=== PATIENT | male | born 1945 | race Caucasian/White ===

== ENCOUNTER 2016-11-02 08:41 | Emergency (ER) | payer OTHER ==
[~2016-11-02] VITALS: Ht 167.6 cm; Wt 77.1 kg
[~2016-11-02 08:41] MED LIST: ASPIRIN CHILDRE81 MG PO; ATORVASTATIN CA40 MG PO; CLONAZEPAM0.5 MG PO; CYCLOBENZAPRINE10 M3 PO; ENDOCET 325 MG-1 TA1 PO; ESCITALOPRAM20 MG PO; FIBER CHOICE1 CTB PO; FINASTERIDE5 MG PO; FISH OIL CONC1000 MG PO; FLEXERIL 10MG (10 MG PO; FLUZONE HI180 MCG/02 SC; MECLIZINE HCL25 M1 PO; MEDROL DOSEPAK1 PAC PO; MELOXICAM15 MG PO; METOPROLOL SUCC25 MG PO; PERCOCET 325 MG1 TA2 PO; SERTRALINE HYD100 MG PO; SERTRALINE HYDR50 MG PO; TOPCARE ASPIRI325 MG PO; TRAMADOL50 MG PO; VALIUM5 M1 PO
--- NOTE | 2016-11-02 09:40 | ED GENERAL ADULT ---
History of Present Illness General Chief Complaint: Trunk Injury Stated Complaint: L SIDE RIB PAIN S/P FALL Source: patient Exam Limitations: no limitations Vital Signs & Intake/Output Vital Signs & Intake/Output Vital Signs Date Time Temp Pulse Resp B/P Pulse O2 O2 Flow FiO2 Ox Delivery Rate 11/02 1113 96.0 59 15 142/72 95 Room Air Room Air 11/02 0856 98.1 67 18 171/112 99 Room Air Allergies Uncoded Allergies: STEROIDS (Severe, "BLOATED" 11/02/16) Reconcile Medications Aspirin (Aspirin EC) 325 MG TABLET.DR 1 TAB PO DAILY HEART HEALTH (Reported) Atorvastatin Calcium (Lipitor) 40 MG TABLET 1 TAB PO DAILY CHOLESTEROL ( Reported) Clonazepam 0.5 MG TABLET 1 TAB PO BID ANXIETY (Reported) Cyclobenzaprine (Flexeril 10MG (ER)) 10 MG TAB 1 TAB PO TID PRN STRAIN Escitalopram Oxalate 20 MG TABLET 1 TAB PO DAILY MENTAL HEALTH (Reported) Fiber (Fiber Choice) 1 CTB CTB 1 TAB PO DAILY SUPPLEMENT (Reported) Finasteride 5 MG TABLET 1 TAB PO DAILY PROSTATE (Reported) Fish Oil (Fish Oil Concentrate) 1,000 MG SGL 1 CAP PO BID SUPPLEMENT ( Reported) Meloxicam 15 MG TABLET 1 TAB PO DAILY PAIN (Reported) Metoprolol Succinate 25 MG TAB.ER.24H 1 TAB PO DAILY HEART (Reported) Oxycodone HCl/Acetaminophen (Percocet 5-325 MG Tablet) 5 MG-325 MG TABLET 1 TAB PO BID PAIN OXYCODONE HCL/ACETAMINOPHEN (Percocet 5-325 MG Tablet) 325 MG/5 MG TAB 1-2 TAB PO Q4-6 PRN PRN PAIN SERTRALINE HCL (Sertraline Hydrochloride) 100 MG TABLET 1 TAB PO DAILY MENTAL HEALTH (Reported) TRAMADOL HCL (Tramadol) 50 MG TABLET 1 TAB PO TID PAIN Triage Note: 71 Y/O MALE C/O L POSTERIOR RIB, L FLANK PAIN S/P FALL YESTERDAY. STATES HE FELL INTO DRESSER AND THEN ONTO GROUND; FALL WAS DUE TO PT TRIPPING OVER A CABINET. PT STATES HE WAS EVAL'D AT [facility] AND HAD XRAYS WHICH WERE NEGATIVE PER PT - "THEY SAID IT WAS A CONTUSION". PT STATES PAIN PERSISTS TODAY, WORSE WITH MOVEMENT OR "A DEEP BREATH". PT STATES HE HAS BEEN USING [facility] AND A BACK BRACE WITH NO RELIEF; TOOK TRAMADOL 1 HOUR AGO. Triage Nurses Notes Reviewed? yes Onset: Abrupt Duration: minute(s): Timing: no prior history HPI: 11/02/16 9:30 AM 71-year-old man presents to the emergency department complaining of severe left sided rib pain. The patient states that he fell yesterday against a dresser and was seen in urgent care center and had x-rays that revealed no fracture. He was trying to control his pain with nonsteroidal analgesics however he continues to have severe pain and so he came to the emergency department. He denies any significant shortness of breath or hemoptysis. He has no abdominal pain. He does have a past medical history of atrial fibrillation; is not on Coumadin. The onset of the symptoms were abrupt, the duration has been for 48 hours, the severity is significant; as his symptoms required him to come to the emergency department for care. On physical exam he does have left lower rib tenderness. His left upper quadrant is completely nontender there is no ecchymosis to the abdomen or flanks. He also has no left shoulder pain. Past History Travel History Traveled to [place] past 21 day No Medical History Any Pertinent Medical History? see below for history Neurological: NONE EENT: NONE Cardiovascular: hypertension, hyperlipidemia, AFIB (325MG ASA) Respiratory: NONE Gastrointestinal: DOUBEL INGUINAL HERNIA Hepatic: NONE Renal: NONE Musculoskeletal: LEFT KNEE PAIN Psychiatric: NONE Endocrine: NONE Blood Disorders: NONE Cancer(s): prostate cancer UNIT RECEPTIONIST/Reproductive: NONE Surgical History Surgical History: non-contributory Psychosocial History Who do you live with Spouse Services at Home None What is your primary language Irish Tobacco Use: Quit >30 days ago Family History Hx Contributory? No Review of Systems Review of Systems Constitutional: Denies: fever. EENTM: Reports: no symptoms. Respiratory: Denies: short of breath. Cardiovascular: Reports: see HPI. GI: Denies: abdominal pain. Genitourinary: Reports: no symptoms. Musculoskeletal: Reports: see HPI. Skin: Denies: rash. Neurological/Psychological: Reports: no symptoms. Hematologic/Endocrine: Denies: bruising, bleeding. Immunologic/Allergic: Reports: no symptoms. Physical Exam Physical Exam General Appearance: alert, awake, anxious, mild distress Head: atraumatic, normal appearance Eyes: Bilateral: normal appearance, PERRL, EOMI. Ears, Nose, Throat: normal pharynx, normal ENT inspection Neck: normal inspection, supple Respiratory: no respiratory distress Cardiovascular: regular rate/rhythm Peripheral Pulses: 4+ radial (R), 4+ radial (L) Gastrointestinal: non-tender Back: normal range of motion Extremities: normal range of motion Neurologic/Psych: no motor/sensory deficits, awake, alert, oriented x 3, normal gait Skin: intact, normal color, warm/dry Core Measures ACS in differential dx? No CVA/TIA Diagnosis: No Severe Sepsis Present: No Septic Shock Present: No Progress Differential Diagnoses I considered the following diagnoses in my evaluation of the patient: [Rib fracture, pneumothorax, pleural effusion, pulmonary contusion, hemothorax] Plan of Care: Percocet as needed. Follow-up with his doctor this week. Initial ED EKG: none Departure Departure Disposition: HOME OR SELF CARE Condition: Stable Clinical Impression Primary Impression: Rib fracture Referrals: SONYA ZAMBRANO MD (PCP/Family) Departure Forms: Customer Survey General Discharge Information Prescriptions: Current Visit Scripts Oxycodone HCl/Acetaminophen (Percocet 5-325 MG Tablet) 1 TAB PO BID #[address] PATIENT: RHONDA MILLER PRESENT AGE: 71 PATIENT ACCOUNT NO: [id number] : 43 LOCATION: [facility] ORDERING PHYSICIAN: ADITI GODFREY DO SERVICE DATE: 11/02/16 EXAM TYPE: CAT - CT CHEST WO IV CONTRAST EXAMINATION: CT CHEST WITHOUT CONTRAST CLINICAL INFORMATION: 71-year-old male with pain after fall. Evaluate for rib fracture. COMPARISON: CXR from 10/20/2013. TECHNIQUE: Multidetector volumetric CT imaging of the chest was done. Axial MIP volume rendering provided. Sagittal and coronal reformatted images were obtained. DLP: 311 mGy-cm FINDINGS: LUNGS AND PLEURA: Trachea and central airways are widely patent and normal in caliber. Scattered linear opacities from mild atelectasis in both lungs, including anterior segment of right upper lobe, medial segment of middle lobe, inferior lingula and both lower lobes. No focal pulmonary consolidation, edema, pneumothorax or pleural effusion. MEDIASTINUM: The heart size is normal. Pulmonary arteries and thoracic aorta are normal in caliber. Mild atherosclerotic calcification of the thoracic aorta and left anterior descending coronary artery. No pericardial effusion. The esophagus is unremarkable. The visualized thyroid gland is atrophied. LYMPHATICS: No pathologic sized axillary, hilar or mediastinal lymph nodes. UPPER ABDOMEN: Adrenal glands are normal. 2.9 cm peripelvic cyst of the mid right kidney and 2 cm cortical cyst of the visualized lower pole of the right kidney. OSSEOUS STRUCTURES: There are old, healed fractures of the left posteromedial 9th, 10th and 11th ribs. There is an acute, minimally displaced fracture of the left lateral 10th rib. The thoracic vertebra have normal height and alignment. No acute findings in the degenerated lower cervical or thoracic spine. There is degenerative subchondral cystic change of the distal right clavicle. IMPRESSION: 1. Minimally displaced fracture of the left lateral 10th rib. 2. No evidence of pulmonary contusion, pneumothorax or pleural effusion. DICTATED BY: JUNE ABERNATHY MD DATE/TIME DICTATED:11/02/161028 BOAT OUTFITTER:SAE DATE/TIME TRANSCRIBED:11/02/161028 CONFIDENTIAL, DO NOT COPY WITHOUT APPROPRIATE AUTHORIZATION. <Electronically signed in Other Vendor System> SIGNED BY: JUNE ABERNATHY MD 11/02/16 1041 The patient was treated with by mouth Percocet. He will follow-up with his doctor this week. Critical Care Note Critical Care Note Critical Care Time: non-applicable
--- NOTE | 2016-11-02 10:41 | CT SCAN REPORT ---
EXAMINATION: CT CHEST WITHOUT CONTRAST CLINICAL INFORMATION: 71-year-old male with pain after fall. Evaluate for rib fracture. COMPARISON: CXR from 10/20/2013. TECHNIQUE: Multidetector volumetric CT imaging of the chest was done. Axial MIP volume rendering provided. Sagittal and coronal reformatted images were obtained. DLP: 311 mGy-cm FINDINGS: LUNGS AND PLEURA: Trachea and central airways are widely patent and normal in caliber. Scattered linear opacities from mild atelectasis in both lungs, including anterior segment of right upper lobe, medial segment of middle lobe, inferior lingula and both lower lobes. No focal pulmonary consolidation, edema, pneumothorax or pleural effusion. MEDIASTINUM: The heart size is normal. Pulmonary arteries and thoracic aorta are normal in caliber. Mild atherosclerotic calcification of the thoracic aorta and left anterior descending coronary artery. No pericardial effusion. The esophagus is unremarkable. The visualized thyroid gland is atrophied. LYMPHATICS: No pathologic sized axillary, hilar or mediastinal lymph nodes. UPPER ABDOMEN: Adrenal glands are normal. 2.9 cm peripelvic cyst of the mid right kidney and 2 cm cortical cyst of the visualized lower pole of the right kidney. OSSEOUS STRUCTURES: There are old, healed fractures of the left posteromedial 9th, 10th and 11th ribs. There is an acute, minimally displaced fracture of the left lateral 10th rib. The thoracic vertebra have normal height and alignment. No acute findings in the degenerated lower cervical or thoracic spine. There is degenerative subchondral cystic change of the distal right clavicle. IMPRESSION: 1. Minimally displaced fracture of the left lateral 10th rib. 2. No evidence of pulmonary contusion, pneumothorax or pleural effusion.
[2016-11-02] MEDS ORDERED: PERCOCET 5-3251 EACH PO (10:57)
[2016-11-02 11:13] VITALS: BP 142/72
== END 2016-11-02 11:14 ==
LOC: ERH 08:41
DX: S22.32XA Fracture of one rib, left side, initial encounter for closed fracture (principal); W18.09XA Striking against other object with subsequent fall, initial encounter; Y93.9 Activity, unspecified; Y92.9 Unspecified place or not applicable

== ENCOUNTER 2017-11-23 10:16 | Emergency (ER) | payer OTHER ==
[~2017-11-23] VITALS: Ht 167.6 cm; Wt 77.1 kg
[~2017-11-23 10:16] MED LIST changes: +PERCOCET 5-3251 EACH PO; +TOPICAINE 5113 GM TOP
--- NOTE | 2017-11-23 11:29 | ED AMS/SEIZURE/WEAK/DIZZY ---
See Addendum History of Present Illness General Chief Complaint: General Adult Stated Complaint: DIZZY, WEAKNESS, X 1 DAY Source: patient, old records Exam Limitations: no limitations Vital Signs & Intake/Output Vital Signs & Intake/Output Vital Signs Date Time Temp Pulse Resp B/P B/P Pulse O2 O2 Flow FiO2 Mean Ox Delivery Rate 11/23 1212 97.8 73 20 131/76 98 Room Air 11/23 1029 96.1 80 18 94/61 96 Room Air Allergies Coded Allergies: No Known Drug Allergies (Intermediate, NONE 11/23/17) Uncoded Allergies: STEROIDS (Severe, "BLOATED" 11/02/16) Reconcile Medications Lidocaine (Topicaine 5) 5 % GEL..GRAM. 1 APPLIC TOP Q6H PRN PAIN Oxycodone HCl/Acetaminophen (Percocet 5-325 MG Tablet) 5 MG-325 MG TABLET 1 TAB PO BID PAIN Triage Note: C/O DIZZINESS AND WEAKNESS SINCE YESTERDAY, STATES HAS HAD SXS X 1 YEAR, BUT WORSE YESTERDAY AFTER EATING PIZZA FOR LUNCH. HAD LEFT SIDED CHEST PAIN AFTER, NONE NOW. DENIES SOB. Triage Nurses Notes Reviewed? yes HPI: Patient presents for evaluation of vertigo over the past few months for which he was prescribed meclizine. Patient states yesterday he was feeling "very sick" with no energy and no strength along with generalized weakness. He checked his blood pressure today but it was "okay". He states he will sometimes feel better after eating. He awoke today however with nausea but no vomiting. He denies any associated fever or cold symptoms or dyspnea. He admits to having a brief episode of left chest pain, sharp in nature, that has not recurred. He states he doesn't sleep well at night due to his 's condition. He admits that he has a history of depression and suspects this may be "a lot of the problem". Past History Travel History Traveled to [place] past 21 day No Medical History Any Pertinent Medical History? see below for history Neurological: NONE EENT: NONE Cardiovascular: hypertension, hyperlipidemia, AFIB (325MG ASA) Respiratory: NONE Gastrointestinal: DOUBEL INGUINAL HERNIA Hepatic: NONE Renal: NONE Musculoskeletal: LEFT KNEE PAIN Psychiatric: NONE Endocrine: NONE Blood Disorders: NONE Cancer(s): prostate cancer DOUBLE BACKER/Reproductive: NONE Surgical History Surgical History: non-contributory Psychosocial History Who do you live with Spouse Services at Home None What is your primary language Mozambican Tobacco Use: Quit >30 days ago ETOH Use: denies use Family History Hx Contributory? No Review of Systems Review of Systems Constitutional: Reports: malaise, weakness. EENTM: Reports: no symptoms. Respiratory: Reports: no symptoms. Cardiovascular: Reports: no symptoms. GI: Reports: no symptoms. Genitourinary: Reports: no symptoms. Musculoskeletal: Reports: no symptoms. Skin: Reports: no symptoms. Neurological/Psychological: Reports: no symptoms. Hematologic/Endocrine: Reports: no symptoms. Immunologic/Allergic: Reports: no symptoms. All Other Systems: Reviewed and Negative Physical Exam Physical Exam General Appearance: SEE BELOW Comments: Gen.: Well-nourished, well-developed, no acute respiratory distress. Head: Normocephalic, atraumatic. Eyes: Normal inspection bilaterally Ears: Normal inspection bilaterally Nose: Normal inspection Throat/mouth : Moist mucosa Neck: Supple, full range of motion, no goiter Heart: Regular rate and rhythm, no murmurs rubs or gallops Lungs: Clear to auscultation bilaterally with normal air entry Chest: Nontender Back: Normal range of motion Abdomen: Soft, nontender, nondistended, normal bowel sounds Extremities: Normal range of motion grossly, equal radial pulses, no cyanosis clubbing or edema Neurologic: Cranial nerves grossly intact, speech is clear Skin: warm and dry Psychiatric: Calm, cooperative, no apparent delusions or hallucinations Core Measures ACS in differential dx? No CVA/TIA Diagnosis No Sepsis Present: No Sepsis Focused Exam Completed? No Progress Differential Diagnosis: arrythmia, anemia, CVA/stroke, dehydration, electrolyte imbalance, hypoglycemia, hypoxia, UTI/pyelo Plan of Care: Orders Procedure Date/time Status MISTAKE 11/23 1131 Active URINALYSIS 11/23 1131 Complete THYROID STIMULATING HORMONE 11/23 1131 Complete TROPONIN LEVEL 11/23 1131 Complete COMPREHENSIVE METABOLIC PANEL 11/23 1131 Complete CBC WITHOUT DIFFERENTIAL 11/23 1131 Complete EKG 11/23 1033 Active Laboratory Tests 11/23/17 1208: CBC w Diff NO MAN DIFF REQ, RBC 4.00 L, MCV 92.7, MCH 30.6, MCHC 33.0, RDW 14.3 , MPV 6.4 L, Gran % 76.1 H, Lymphocytes % 13.3 L, Monocytes % 9.0, Eosinophils % 1.2, Basophils % 0.4, Absolute Granulocytes 6.4, Absolute Lymphocytes 1.1 L, Absolute Monocytes 0.8 H, Absolute Eosinophils 0.1, Absolute Basophils 0 11/23/17 1202: Anion Gap 9, Estimated GFR > 60, BUN/Creatinine Ratio 20.9, Glucose 99, Calcium 9.0, Total Bilirubin 0.8, AST 20, ALT 28, Alkaline Phosphatase 70, Troponin I < 0.01, Total Protein 6.4, Albumin 3.8, Globulin 2.6, Albumin/Globulin Ratio 1.5, TSH 1.370, Urine Color YEL, Urine Clarity CLEAR, Urine pH 7.5, Ur Specific [place] 1.010, Urine Protein NEG, Urine Ketones NEG, Urine Nitrite NEG, Urine Bilirubin NEG, Urine Urobilinogen 0.2, Ur Leukocyte Esterase NEG, Ur Microscopic EXAM NOT REQUIRED, Urine Hemoglobin NEG, Urine Glucose NEG Diagnostic Imaging: Discussed w/RAD: Radiology Read. CXR Impression: PATIENT: MARINO MILLER PRESENT AGE: 72 PATIENT ACCOUNT NO: [id number] : 43 LOCATION: [facility] ORDERING PHYSICIAN: Marito Vines MD SERVICE DATE: 11/23/17 EXAM TYPE: RAD - XRY-CHEST XRAY, TWO VIEWS EXAMINATION: XR CHEST CLINICAL INFORMATION: Generalized weakness COMPARISON: Multiple priors, most recently 11/02/2016 TECHNIQUE: 2 views of the chest were obtained. FINDINGS: The lungs are well expanded. There is no focal consolidation, edema, or effusion. No pneumothorax. The cardiomediastinal silhouette is within normal limits. No acute osseous abnormality. Mild degenerative changes of the spine. IMPRESSION: Clear lungs. DICTATED BY: Sahara MOSQUEDA,Joo DATE/TIME DICTATED:11/23/171149 SPECIAL WARFARE OPERATOR: SAE DATE/TIME TRANSCRIBED:11/23/171149 CONFIDENTIAL, DO NOT COPY WITHOUT APPROPRIATE AUTHORIZATION. <Electronically signed in Other Vendor System> SIGNED BY: Sahara MOSQUEDA,Joo 11/23/17 8621 Initial ED EKG: NSR, rate, AFIB (67) Prior EKG: unchanged Comments: 11/23/2017 1:29:18 PM I have updated Marino on his test results. He states he is feeling better and has been quite ambulatory here in the emergency department without apparent distress. Departure Departure Disposition: HOME OR SELF CARE Condition: Stable Clinical Impression Primary Impression: Malaise Referrals: Robles Mills MD (PCP/Family) Additional Instructions: Follow-up with your primary care physician next week. Return if any concerns or sudden worsening. Please note that there might be incidental findings in your evaluation that are unrelated to the current emergency department visit. Please notify your primary care doctor about this emergency department visit in order to obtain and review all of the testing performed so that these incidental findings can be monitored as needed. If you had an x-ray performed, please understand that some fractures may not be seen on the initial set of x-rays. If your symptoms persist you might need a repeat set of x-rays to check for such a fracture. If you had a laceration evaluated, please understand that foreign bodies such as glass or wood may not be visible to the naked eye or on plain x-rays. If the wound becomes red, swollen, increasingly more painful or if there is any drainage from the wound, please have it reevaluated by a physician for the possibility of a retained foreign body. If you're unable to follow up as outlined in the discharge instructions please return to the emergency department. Thank you for choosing the [facility] Emergency Department for your care. It was a pleasure to serve you today. Marito Vines M.D. [facility] Departure Forms: Customer Survey General Discharge Information
--- NOTE | 2017-11-23 11:54 | RADIOLOGY REPORT ---
EXAMINATION: XR CHEST CLINICAL INFORMATION: Generalized weakness COMPARISON: Multiple priors, most recently 11/02/2016 TECHNIQUE: 2 views of the chest were obtained. FINDINGS: The lungs are well expanded. There is no focal consolidation, edema, or effusion. No pneumothorax. The cardiomediastinal silhouette is within normal limits. No acute osseous abnormality. Mild degenerative changes of the spine. IMPRESSION: Clear lungs.
[2017-11-23 12:16] LABS: ABSOLUTE BASOPHIL COUNT 0 /CUMM (0.0-0.2); ABSOLUTE EOSINOPHIL COUNT 0.1 /CUMM (0.0-0.7); ABSOLUTE GRANULOCYTE CT 6.4 /CUMM (1.4-6.5); ABSOLUTE LYMPH COUNT 1.1 /CUMM (1.2-3.4); ABSOLUTE MONOCYTE COUNT 0.8 /CUMM (0.10-0.60); BASOPHIL % 0.4 % (0.0-2.0); EOSINOPHIL % 1.2 % (0-5); GRANULOCYTE % 76.1 % (42.2-75.2); HEMATOCRIT 37.1 % (42-52); MEAN CORPUSCULAR HGB 30.6 PG (27.0-31.0); MEAN CORPUSCULAR VOLUME 92.7 FL (80.0-94.0); MEAN PLATELET VOLUME 6.4 FL (7.4-10.4); PLATELET COUNT 254 /CUMM (130-400); RBC DISTRIBUTION WIDTH 14.3 % (11.5-14.5); WHITE BLOOD CELL COUNT 8.5 /CUMM (4.8-10.8)
[2017-11-23 14:12] VITALS: BP 130/80
== END 2017-11-23 14:13 ==
LOC: ERH 10:16
PROVIDERS: Emergency Medicine
DX: R53.81 Other malaise (principal)
CPT/HCPCS: 71046; 81003; 93005; 93010; J0696